=== PATIENT | male | born 1980 | race Caucasian/White ===

== ENCOUNTER 2018-06-27 09:26 | Outpatient (CLI) | payer OTHER ==
--- NOTE | 2018-06-27 10:40 | MRI ---
MR OF THE LEFT KNEE WITHOUT CONTRAST: History: Left knee injury two months ago with loud pop and pain in the left knee since. FINDINGS: There is a partial thickness tear of the anterior bundle of the ACL with scarred redundant fragment l marguerite anterior to the ACL foot bed on Image 17 of Series 6 and Image 20 of Series 5. The anteriorly di splaced fragment measures 1.6 x 1.3 cm. There is a pivot shift subchondral impaction fracture involving the lateral femoral condyle on Image 19 of Series 6, on Image 25 of Series 4. The medial and lateral menisci are intact. There is a focal fullness articular cartilage fissure involving the median patellar ridge measuring 1 .7 mm on Image 9 of Series 3. A near full thickness articular cartilage fissure seen involving the me dial patellar facet on Image 11 of Series 3 measuring 1.8 mm. There is a moderate semimembranosis-medial gastrocnemius popliteal cyst. The MCL, PCL, and LCLC are intact. IMPRESSION: 1. Partial thickness ACL tear with displaced portion of the torn anterolateral bundle lying slightly lateral and anterior to the ACL foot bed. 2. Pivot shift subchondral impaction fracture involving the anterolateral lateral femoral condyle. 3. Menisci are intact. 4. The MCL, PCL, LCLC, and extensor mechanism is intact. POS: [facility]
== END 2018-06-27 09:27 | disposition home or self-care (01) ==
LOC: TBSIIMAG 09:26
PROVIDERS: ATTEND Orthopaedic Surgery
DX: M23.92 Unspecified internal derangement of left knee (principal); S83.512A Sprain of anterior cruciate ligament of left knee, initial encounter; S72.422A Displaced fracture of lateral condyle of left femur, initial encounter for closed fracture

== ENCOUNTER 2018-11-07 02:54 | Outpatient (CLI) | payer OTHER ==
[2018-11-07 14:11] LABS: #Eosinphils 0.1 thou/uL (0.0-0.7); #Lymphocytes 1.1 thou/uL (1.20-3.40); #Monocytes 0.4 thou/uL (0.11-0.59); #Neutrophils 3.5 thou/uL (1.40-6.50); %Basophils 0.6 % (0.0-1.0); %Eosinophils 2.1 % (0.0-10.0); %Lymphocytes 21.8 % (21.0-51.0); %Neutrophils 67.5 % (42.0-75.0); Hemoglobin 14.7 g/dL (14.0-18.0); Mean Corpuscular HGB CONC 32.2 g/dL (32.0-36.0); Mean Corpuscular Hemoglobin 31.6 pg (27.0-31.0); Mean Corpuscular Volume 98.1 fL (78.0-98.0); Mean Platelet Volume 8.9 fL (7.4-10.4); Platelet Count 259 thou/uL (130-400); RBC Distribution Width 11.6 % (11.5-14.5); Red Blood Cell (RBC) Count 4.64 mill/uL (4.70-6.10); White Blood Cell (WBC) Count 5.3 thou/uL (4.8-10.8)
== END 2018-11-07 02:55 | disposition home or self-care (01) ==
LOC: LABBT 02:54
PROVIDERS: ATTEND Orthopaedic Surgery
DX: Z01.812 Encounter for preprocedural laboratory examination (principal); S83.512A Sprain of anterior cruciate ligament of left knee, initial encounter
CPT/HCPCS: 85025

== ENCOUNTER 2018-11-09 05:44 | Day surgery (SDC) | payer OTHER ==
[2018-11-07 13:37] VITALS: BMI 25.8
[2018-11-09] MEDS ORDERED: CEFAZOLIN 2 GM/50 ML BAG ONE (05:58)
[2018-11-09] MEDS ORDERED: Midazolam HCl 2 mg/2 ml Vial ONE (06:31)
[2018-11-09] MEDS ORDERED: Fentanyl 100 MCG/2 ML VIAL ONE ×2 (06:32→06:55)
--- NOTE | 2018-11-09 07:38 | HP ---
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 PAST MEDICAL HISTORY: The patient's past medical history includes none. PAST SURGICAL HISTORY: Includes right knee arthroscopy. MEDICATIONS: Include sildenafil citrate. ALLERGIES: THE PATIENT'S ALLERGIES ARE TO BACTRIM. SOCIAL HISTORY: The patient is a nonsmoker. Occasional drinking. He is a [employer], , children. PHYSICAL EXAMINATION: GENERAL: Alert and oriented male, in no acute distress, resting comfortably in bed. EXTREMITIES: There is no effusion, no erythema, no wounds. The patient has full range of motion of his knee. The patient has good quad tones. Sensation intact distally. The patient has negative posterior drawer. He has positive pain with the anterior drawer, Aydee's as well as equivocal pivot shift. DIAGNOSTIC DATA: The patient's MRI showed a partial-thickness tear ACL at the footprint with previous pivot shift contusion consistent with injury. The patient had no meniscal tears or other injuries to MCL, LCL, and PCL. ASSESSMENT: Internal derangement, partial tear of anterior cruciate ligament, left knee. ASSESSMENT AND PLAN: The patient has failed conservative measures with nonoperative management. The patient continued to have instability and desires to proceed with left ACL reconstruction. I discussed with the patient about performing a [id number] autograft. I have discussed the potential risk involved with the operation, recovery time, risk of arthritis, he understands these risks and benefits and he elects to proceed. He understands also the risk of infection, probably risks of bleeding, decreased range of motion, damage to vital structures, need for further surgeries, DVT, loss of life or limb. He understands these risks and benefits and elects to proceed. Taken back for left ACL reconstruction. Today, the patient will be sent home without a brace per his request. The patient will be working on range of motion, preop antibiotics. Job ID: [id number] [facility]
[2018-11-09] MEDS ORDERED: Bupivacaine HCl 0.5%/Epinephrine 1:200,000/PF 30 ml Vial ONE (12:07)
[2018-11-09] MEDS ORDERED: Ketorolac Tromethamine 30 MG/ML VIAL ONE (13:22)
[2018-11-09] MEDS ORDERED: PROPOFOL 200 MG/20 ML VIAL ONE (13:22)
[2018-11-09] MEDS ORDERED: Ondansetron PF 4 MG/2 ML Vial ONE (13:22)
[2018-11-09] MEDS ORDERED: Lidocaine 1% PF 5 ML VIAL ONE (13:22)
[2018-11-09] MEDS ORDERED: Dexamethasone 20 MG/5 ML VIAL ONE (13:22)
--- NOTE | 2018-11-09 14:54 | OP ---
DATE OF PROCEDURE: 11/09/2018 PREOPERATIVE DIAGNOSIS: Left anterior cruciate ligament partial tear. POSTOPERATIVE DIAGNOSIS: Left full-thickness anterior cruciate ligament tear cyclops lesion. PROCEDURE PERFORMED: Left anterior cruciate ligament reconstruction, arthroscopic assisted. HOME HEALTH ASSISTANT: Tiana Kendall PA-C ANESTHESIA: LMA with a single-shot femoral. ESTIMATED BLOOD LOSS: 30 mL. TOURNIQUET TIME: 77 minutes at 300 mmHg. IMPLANTS: Arthrex 7 x 25 mm metal interference screws. ANTIBIOTICS: Ancef 2 g. COMPLICATIONS: None. HISTORY OF PRESENT ILLNESS: Mr. 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 I discussed the risks and benefits of surgery to include pain, scar, bleeding, infection, damage to vital structures, decreased range of motion and strength, nonunion, fracture, arthritis, and the patient understood the risks and benefits and elected to proceed. DESCRIPTION OF PROCEDURE: A time-out was performed designating the patient's left lower extremity as the operative site based on site, consents, and marking. After completion of the time-out, the patient's brought up for a total of 77 minutes. Anterior midline incision down through skin to the tendon was made. We took a 10 mm section with 25 mm bone plugs from the patella and femur. They fit through size 9 hole. We closed the tendon with 0, as well as opening closed over the bone with 0, grafting with little bone we had left. We then moved and began our arthroscopic placement , placed our lateral portal, visualized intra-articularly, debrided the patient, saw the ACL was out of cyclops lesion. We then started remainder of our diagnostic arthroscopy, looked in the gutters. No loose bodies. No medial and lateral meniscus tears. No patellar defects. Other chondral defects noted were removed. We removed the cyclops. We removed the remnant of ACL, created our notchplasty in the footprint. We then placed [id number] guide #6 to a 9. We then drilled in about the 1:30 position, drilled about [address] our plug. We drilled the tibia and pulled our skin incision medially about a finger's breadth mcfp between posterior tibia and patella plug, placed it on the vessel within the footprint on the posterior medial aspect of ACL stump. We drilled our guide pin and then drilled our 9 mm stanley and had 9 mm tunnels on both sides. We then cleaned up, ensured we had overall good position for passing suture through, we then pulled the graft into place and pulled into place, placed our 7 x25 interference screw with a good bite. I then cycled the knee 5 times, placed the patient in its highest extension position and placed 7 x 25 screw. I then checked the stability, which was stable with anterior drawers with Aydee's postprocedure. We then closed the paratenon tendon over the holes from the bone plugs closed the subcu and mina for skin. The patient will be discharged to home. He did not desire brace. He will begin weightbearing as tolerated once the femoral block wears off. The patient being worked on range of motion and follow up with me in 2 weeks. Job ID: [id number] [facility]
== END 2018-11-09 11:35 | disposition home or self-care (01) ==
LOC: SDC 05:44
PROVIDERS: ATTEND Orthopaedic Surgery
PROC: 3E0T3BZ Introduction of Anesthetic Agent into Peripheral Nerves and Plexi, Percutaneous Approach (ICD-10-PCS; principal; 2018-11-09)
PROC: 0MRP47Z Replacement of Left Knee Bursa and Ligament with Autologous Tissue Substitute, Percutaneous Endoscopic Approach (ICD-10-PCS; principal; 2018-11-09)
DX: S83.512A Sprain of anterior cruciate ligament of left knee, initial encounter (principal); G89.18 Other acute postprocedural pain; Z79.899 Other long term (current) drug therapy; Z88.2 Allergy status to sulfonamides; Z88.8 Allergy status to other drugs, medicaments and biological substances; X58.XXXA Exposure to other specified factors, initial encounter; Y99.1 Military activity
CPT/HCPCS: C1713; J0670; J1100; J1885; J2001; J2250; J2405; J2704; J3010

== ENCOUNTER 2018-11-14 15:10 | Outpatient (CLI) | payer OTHER ==
--- NOTE | 2018-11-14 16:10 | ULT ---
VENOUS DOPPLER ULTRASOUND OF THE LEFT LOWER EXTREMITY: 11/14/18 HISTORY: Recent ACL repair surgery and edema in the left lower extremity. TECHNIQUE: Gipson scale, color flow and spectral doppler imaging of the deep venous system of the left lower extr emity is performed. FINDINGS: There is absence of compression with partial flow in the left popliteal vein due to a nonocclusive th rombus. The remainder of the deep venous system of the left lower extremity is otherwise patent. IMPRESSION: DVT in the left lower extremity. Discussed over the telephone with Dr. Daniel Lentz at 3:47 p.m. POS: OFF
== END 2018-11-14 15:11 | disposition home or self-care (01) ==
LOC: BICULT 15:10
PROVIDERS: ATTEND Orthopaedic Surgery
DX: M79.89 Other specified soft tissue disorders (principal); I82.402 Acute embolism and thrombosis of unspecified deep veins of left lower extremity; Z98.890 Other specified postprocedural states

== ENCOUNTER 2019-04-10 10:16 | Outpatient (CLI) | payer OTHER ==
--- NOTE | 2019-04-10 11:52 | MRI ---
MRI LEFT KNEE WITHOUT IV CONTRAST: HISTORY: Left knee pain, status post ACL reconstruction. COMPARISON: 06/27/2018 FINDINGS: Postop ACL repair changes are noted with an intact but somewhat thickened replaced ACL tendon with so me heterogeneous increased signal, possibly some mucoid degeneration change. Intact appearing PCL. Slightly more prominent and physiologic joint fluid. Small popliteal fossa recess. Minimal marrow s ignal adjacent to the femoral and tibial reconstructed ACL tendon insertions. There is abnormal sign al involving the inferior patella with some thickening and increased signal in the proximal patellar tendon at the site of prior surgery. The abnormal appearance to the inferior patella could possibly be related to residual from postoperative change or a small chip type fracture. Collateral ligament complexes appear intact. There is some minimal abnormal high signal involving th e posterior horn/posterior body of the medial meniscus, primarily the undersurface, at the capsular-m eniscal junction region, evidence for residual from a prior tear versus post meniscal repair. There is a relatively small focal area of free edge blunting of the posterior horn/posterior body of the la teral meniscus, which appears to be new from the prior study, evidence for a subsurface free edge tea r. No evidence for other significant acute abnormal marrow signal. IMPRESSION: 1. Abnormal marrow signal involving the inferior tip of the patella with an appearance suggesting th at of residual from prior surgery for partial patellar tendon removal versus a small chip type fractu re. 2. Abnormal signal at the posterior horn/posterior body of the medial meniscus, evidence for an appe arance consistent with that of residual from a prior capsular-meniscal junction tear or repair. 3. Small free edge irregularity of the posterior horn/posterior body of the lateral meniscus. Repla ro anterior cruciate ligament tendon is intact but shows some increased signal and thickening, possi theresa representing some mucoid degeneration. 4. Other findings as above. POS: [facility]
== END 2019-04-10 10:17 | disposition home or self-care (01) ==
LOC: SCSMRI 10:16
PROVIDERS: ATTEND Orthopaedic Surgery
DX: M25.562 Pain in left knee (principal); Z98.890 Other specified postprocedural states; R93.7 Abnormal findings on diagnostic imaging of other parts of musculoskeletal system

== ENCOUNTER 2019-06-11 10:29 | Outpatient (CLI) | payer OTHER ==
--- NOTE | 2019-06-11 10:50 | RAD ---
EXAM: 3 views of the lumbosacral spine HISTORY: Low back pain COMPARISON: None FINDINGS: 3 views of the lumbosacral spine shows normal height and alignment of the vertebral bodies and intervertebral discs without fracture or subluxation. Mild to moderate intervertebral disc space space narrowing and osteophyte formation is seen at L5/S1. The sacroiliac joints are unremarkable. IMPRESSION: Degenerative changes at L5/S1 without evidence of complication.
== END 2019-06-11 10:30 | disposition home or self-care (01) ==
LOC: SCSRAD 10:29
PROVIDERS: ATTEND Family Medicine
DX: M54.5 Low back pain (principal); M47.817 Spondylosis without myelopathy or radiculopathy, lumbosacral region
CPT/HCPCS: 72100